=== PATIENT | female | born 1985 | race Caucasian/White ===

== ENCOUNTER 2024-04-24 02:00 | Inpatient (IN) ==
--- NOTE | 2024-04-24 03:29 | Emergency Department Note ---
Impression & Plan Lower gastrointestinal hemorrhage, Anemia, Dizziness, Lightheadedness ED Provider Note CHIEF COMPLAINT: Dizziness, fall, rectal bleeding HISTORY OF PRESENT ILLNESS: This 38-year-old female patient presents to the emergency department today for evaluation of dizziness. The patient states she was here yesterday for hemorrhoid and rectal bleeding. The patient states she was doing okay throughout the day today, eating a high-fiber diet but admits to not eating or drinking much throughout the day. She states that about 11 PM, she was walking her dog when she bent over to tend to the dog and developed sudden onset of dizziness. The patient states that she did fall, landing on her knees. She scraped up her left knee. The patient states she got up, but was having difficulty getting back to her home due to the ongoing dizziness. She states that she is feeling lightheaded. She is concerned that she may be losing too much blood due to the rectal bleeding. The patient states the dizziness occurs when she changes positions. While sitting upright, she feels generally okay, but if she leans forward or bends over or lies back, the dizziness returns. She has not taken any medication for the symptoms. No recent fever or illness. No chest pain or shortness of breath. No abdominal pain. No numbness, tingling, weakness. Patient states she did have similar symptoms associated with starting her menstrual cycle about a year ago. The patient was able to ambulate on the knee. She reports pain associated with the abrasion. No head injury. REVIEW OF SYSTEMS: A 10 system review of systems was performed with positives and pertinent negatives listed in the history of present illness. All other systems were reviewed and are negative. ALLERGIES: lactose PHYSICAL EXAM: VITALS: Vitals are noted on the nurse's note and reviewed by myself. GENERAL: This is a 38-year-old female, in no acute distress, nondiaphoretic, well-developed well-nourished. SKIN: Abrasion on the left knee. There is mild bleeding. There are no gaping wounds. No surrounding erythema or edema. There is tenderness to palpation the skin was without rashes, erythema, edema, or bruising. There is no tenting of the skin. Capillary refill less than 2 seconds. HEAD: Normocephalic atraumatic. EARS: External auditory canals clear, tympanic membranes pearly fonseca without erythema or effusion bilaterally. No hemotympanum. Negative Campbell sign EYES: Pupils equal round and reactive to light and accommodation. Conjunctivae without injection, sclerae without icterus. Extraocular movements intact. no swelling or discoloration of the tissue surrounding the eyes. NOSE: Patent, turbinates without inflammation or discharge. No sinus tenderness. MOUTH: Mucous membranes moist. Tonsils are not enlarged. Pharynx without erythema or exudate. Uvula midline. Airway patent. Tongue does not deviate. NECK: Supple without nuchal rigidity. No lymphadenopathy. Cervical spine is nontender. No JVD. HEART: Regular rate and rhythm without murmurs gallops or rubs. LUNGS: Clear to auscultation bilaterally without wheezes, rales or rhonchi. No retractions or accessory muscle use. ABDOMEN: Positive bowel sounds x 4. Normal tympanic percussion. Soft, nontender, without masses or organomegaly. Crowder sign negative. No guarding or rebound tenderness. No CVA tenderness bilaterally RECTAL - No rectal fissures. Flesh-colored external hemorrhoid appreciated at the 6 o'clock position. A sterile, water-soluble lubricant was applied to the examiner's finger prior to internal exam. No rectal vault tenderness. No rectal masses. No fecal impaction. Stool is brown in color and grossly bloody. PSYCH - A&Ox3 and cooperates fully with examiner. Pt is very pleasant and interacts well with examiner. MUSCULOSKELETAL: No muscle atrophy, erythema, or edema noted. Full range of motion without joint tenderness in all extremities. No tenderness to palpation. Normal gait. Strength 5/5 throughout. NEURO: Patient was alert and oriented to person place and time. Normal sensation to light and sharp touch. No focal neurological deficits. 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 The monitor showed a normal sinus rhythm at a ventricular rate of 87 bpm, per my interpretation. EKG, per my interpretation: Sinus rhythm with PACs. No ST elevation or depression. No T wave inversion. No prior EKG available for comparison. EMERGENCY DEPARTMENT COURSE: The patient was seen and evaluated as above. The patient presents for episode of dizziness and lightheadedness. She has been experiencing rectal bleeding for several days. She was seen here in the emergency department yesterday and was diagnosed with a hemorrhoid. IV access was obtained, labs were drawn. EKG as above. Patient was medicated with IV fluids. Labs reviewed. Labs were concerning for Leukocytosis of 17,000. There is an anemia with a hemoglobin of 7.8. This is down from hemoglobin of 10.2 drawn about 36 hours ago here in the emergency department. There was no thrombocytopenia. Renal, hepatic function and electrolytes without significant abnormality. Troponin is high normal at 12.4. Of note, this is up from troponin of 7.4 which was completed about 36 hours ago. hCG negative. Urinalysis negative for blood or evidence of infection. Patient was updated on findings. She is feeling somewhat better but is complaining of a headache. She states the dizziness and lightheadedness has significantly improved. I did recommend a repeat rectal examination and the patient was agreeable. The stool was light brown and visibly bloody. I did recommend CT imaging to further evaluate the rectal bleeding and the patient's complaint of dizziness. The patient was agreeable. CT scan was completed and was reviewed by myself and radiologist as noted. No acute findings. The patient has been afebrile. There is a leukocytosis of 17,000 and I question a developing infection. There is no tenderness to palpation and she denies vomiting or diarrhea at this time. I am concerned regarding the drop in hemoglobin over about 36 hours. I recommended inpatient treatment for observation, monitoring of hemoglobin, and administration of blood if necessary. The patient was agreeable. I discussed case with the campground manager. I discussed the case with Dr. Mclaughlin, [facility] hospitalist physician. Please see hospitalist dictation regarding ongoing management care of this patient. Case was discussed with the attending physician. I attest that I have personally reviewed the patient medication list. I attest that I have reviewed the patient's blood pressure and it was found to be elevated. Further management by hospitalist GCS: 15 In the evaluation and treatment of this patient the following differential diagnoses were entertained: GI bleed, infection, bowel perforation, benign positional vertigo, dehydration, hypovolemia, anemia, tumor, infection, hypoglycemia, electrolyte abnormalities, cardiac sources, intracerebral event, toxicologic, neurologic, as well as other pathologies. The chart was completed utilizing [employer] voice recognition software. Grammatical errors, random word insertions, pronoun errors, and incomplete sentences are an occasional consequence of this system due to software limitations, ambient noise, and hardware issues. Any formal questions or concerns about the content, text, or information contained within the body of this dictation should be directly addressed to the provider for clarification. Past Med/Surg History Problem List (Updated 04/24/24 @ 06:05 by Jeane Zaragoza PA-C) Lightheadedness (Acute) Dizziness (Acute) Anemia (Acute) Lower gastrointestinal hemorrhage (Acute) Medical History Hemorrhoids Social History Smoking Status: Never smoker Preferred Language: Upper Sorbian Feels Safe at Home: Yes Allergies Allergies Allergy/AdvReac Type Severity Reaction Status Date / Time lactose Allergy Intermediate Gastrointestinal Verified 10/07/23 02:02 Upset Home Meds Home Medications Medication Instructions Recorded Confirmed multivitamin 1 tab PO DAILY 10/07/23 04/22/24 Results & Data (ED) Vital Signs Vital Signs - 24 hr 04/24/24 02:36 04/24/24 03:13 04/24/24 03:15 Pulse Rate 87 85 Pulse Rate from SpO2 Sensor 85 Respiratory Rate 16 Blood Pressure Blood Pressure Mean Pulse Oximetry 96 Oxygen Delivery Method Room Air Room Air Oxygen Flow Rate 98 04/24/24 03:30 04/24/24 04:30 Pulse Rate 88 Pulse Rate from SpO2 Sensor 89 84 Respiratory Rate 19 18 Blood Pressure 140/90 145/93 H Blood Pressure Mean 106 110 Pulse Oximetry 96 98 Oxygen Delivery Method Room Air Room Air Oxygen Flow Rate Laboratory Data 04/24/24 02:25 04/24/24 02:25 Lab Results 04/24/24 04/24/24 Range/Units 02:25 04:06 WBC 17.15 H (4.8-10.8) K/ul RBC 3.14 L (4.20-5.40) M/uL Hgb 7.8 L (12.0-16.0) g/dl Hct 24.8 L (37.0-47.0) % MCV 79.0 L (80.0-100.0) fL MCH 24.8 L (25.0-34.0) pg MCHC 31.5 L (32.0-36.0) g/dL RDW Std Deviation 58.4 H (36.4-46.3) fL RDW Coeff of Paty 20.5 H (11.5-14.5) % Plt Count 475 H (130-400) K/uL MPV 9.1 L (9.4-12.4) fL PT 10.3 (9.0-12.0) Seconds INR 0.9 (0.9-1.1) APTT 22 (21-31) Seconds PTT Ratio 0.8 Sodium 136 (136-145) mmol/L Potassium 3.7 (3.5-5.1) mmol/L Chloride 104 (98-107) mmol/L Carbon Dioxide 24 (21-32) mmol/L Anion Gap 8 (3-11) BUN 17 (6-23) mg/dl Creatinine 0.75 (0.6-1.2) mg/dl Est Cr Clr Drug Dosing Not Reportable Est GFR ( Amer) 115.6 ml/min Est GFR (Non-Af Amer) 99.7 ml/min BUN/Creatinine Ratio 22.7 H (10-20) Glucose 129 H (70-99(Fasting)) mg/dl Calcium 9.3 (8.6-10.3) mg/dl Total Bilirubin 0.2 (0.2-1.0) mg/dl AST 19 (13-39) U/L ALT 16 (7-52) U/L Alkaline Phosphatase 73 (34-104) U/L Troponin I High Sens 12.4 D (0-14) pg/ml Total Protein 6.9 (6.0-8.3) gm/dl Albumin 4.0 (3.4-5.0) gm/dl Globulin 2.9 (2.5-4.0) gm/dl Albumin/Globulin Ratio 1.4 (0.9-2) HCG, Qual Negative (Negative) Urine Color Yellow Urine Appearance Clear (Clear) Urine pH 6.0 (4.5-7.5) Ur Specific Foster 1.007 (1.000-1.030) Urine Protein Negative (Negative) Urine Glucose (UA) Negative (Negative) Urine Ketones Negative (Negative) Urine Blood Negative (Negative) Urine Nitrite Negative (Negative) Urine Bilirubin Negative (Negative) Urine Urobilinogen Negative (Negative) Ur Leukocyte Esterase Negative (Negative) Blood Type B Negative Antibody Screen NEGATIVE Administered Medications Discontinued Medications Ioversol (Optiray 320 125ml) 125 ml IV ONCE ONE Stop: 04/24/24 04:13 Last Admin: 04/24/24 04:13 Dose: 117 ml Documented By: [facility] Imaging Data Radiologist's Impression: Abdomen/Pelvis CT 04/24/24 03:51 CT SCAN OF THE ABDOMEN AND PELVIS WITH IV CONTRAST CLINICAL HISTORY: Hematochezia. Drop in hemoglobin. Fall. COMPARISON STUDY: No priors. TECHNIQUE: Following the IV administration of 117 cc of Optiray 320, CT scan of the abdomen and pelvis is performed from the lung bases to the proximal femora. Images are reviewed in the axial, sagittal, and coronal planes. IV contrast was administered without complication. A dose lowering technique was utilized adhering to the principles of ALARA. CT DOSE: 1521.46 mGy.cm FINDINGS: Lung bases: The heart is normal in size and without pericardial effusion. The lung bases are clear. Liver: The contrast-enhanced liver is enlarged, measuring 21.8 cm in length. The liver demonstrates diffusely diminished attenuation indicating steatosis. Fatty sparing is seen adjacent to gallbladder fossa. There is a calcified hepatic granuloma. There is no intrahepatic biliary ductal dilatation. The hepatic veins and portal veins are patent. Gallbladder: Unremarkable. Spleen: Normal in size and attenuation. Pancreas: Unremarkable. Adrenal glands: Unremarkable. Kidneys: The contrast enhanced kidneys are normal in size and without hydronephrosis. The kidneys enhance symmetrically. Abdominal vasculature: The abdominal aorta is normal in course and caliber. Bowel: There is [id number] colonic diverticulosis without CT evidence of acute diverticulitis. No bowel obstruction is seen. The appendix is well- visualized and normal. Peritoneum: There is no intraperitoneal free air or abdominal ascites. There is a fat-containing umbilical hernia. Lymphadenopathy: None. Pelvic viscera: The bladder, uterus, and adnexa are normal as visualized. Skeletal structures: No lytic or blastic lesions are seen. IMPRESSION: 1. No acute infectious or inflammatory findings are identified in the abdomen or pelvis. 2. Hepatomegaly and hepatic steatosis. 3. Colonic diverticulosis without CT evidence of acute diverticulitis. 4. Additional findings as above. ACT 112: Negative or not required by law. Electronically signed by: Tim Cast M.D. 04/24/2024 5:20 AM Discharge Plan Visit Data Chief Complaint: Dizziness Stated Complaint: HYPOGLYCEMIA? ED Provider: Aida Malcolm ED Midlevel Provider: Matter,Jeane D. Discharge Problem: Lower gastrointestinal hemorrhage, Anemia, Dizziness, Lightheadedness Patient Disposition: Admitted As Inpatient Forms Stand Alone Forms: [facility] [employer] Prescriptions Prescriptions: No Action multivitamin Tablet 1 tab PO DAILY Referrals Referrals: PCP,NO [Primary Care Provider] -
[2024-04-24 03:30] LABS: Appearance Urine Clear (Clear); Bilirubin Urine Negative (Negative); Blood Urine Negative (Negative); Color Urine Yellow; Glucose Urine UA Negative (Negative); Ketones Urine Negative (Negative); Leukocyte Esterase Urine Negative (Negative); Nitrite Urine Negative (Negative); Protein Urine Negative (Negative); Specific Gravity Urine 1.007 (1.000-1.030); Urobilinogen Urine Negative (Negative)
[2024-04-24 03:41] LABS: Alanine Aminotransferase 16 U/L (7-52); Albumin Globulin Ratio 1.4 (0.9-2); Alkaline Phosphatase 73 U/L (34-104); Anion Gap 8 (3-11); Aspartate Aminotransferase 19 U/L (13-39); BUN Creatinine Ratio 22.7 (10-20); Bilirubin,Total 0.2 mg/dl (0.2-1.0); Blood Urea Nitrogen 17 mg/dl (6-23); Calcium 9.3 mg/dl (8.6-10.3); Carbon Dioxide 24 mmol/L (21-32); Chloride 104 mmol/L (98-107); Est GFR (African American) 115.6 ml/min; Est GFR (Non-African American) 99.7 ml/min; Globulin 2.9 gm/dl (2.5-4.0); Glucose 129 mg/dl (70-99(Fasting)); Potassium 3.7 mmol/L (3.5-5.1); Sodium 136 mmol/L (136-145); Total Protein 6.9 gm/dl (6.0-8.3)
[2024-04-24 03:46] LABS: Hematocrit (blood only) 24.8 % (37.0-47.0); Hemoglobin 7.8 g/dl (12.0-16.0); Mean Corpuscular Hemoglobin 24.8 pg (25.0-34.0); Mean Corpuscular Hgb Conc 31.5 g/dL (32.0-36.0); Mean Platelet Volume 9.1 fL (9.4-12.4); Platelet Count 475 K/uL (130-400); RDW Coefficient of Variation 20.5 % (11.5-14.5); RDW Standard Deviation 58.4 fL (36.4-46.3); Red Blood Count 3.14 M/uL (4.20-5.40); White Blood Count 17.15 K/ul (4.8-10.8)
[2024-04-24 03:47] LABS: Troponin I High Sensitivity 12.4 pg/ml (0-14)
[2024-04-24 03:54] LABS: Pregnancy Test, Serum Negative (Negative)
[2024-04-24] MEDS: OPTIRAY 320 125ml IV ONE (04:13)
--- NOTE | 2024-04-24 05:23 | CT Scan Report ---
CT SCAN OF THE ABDOMEN AND PELVIS WITH IV CONTRAST CLINICAL HISTORY: Hematochezia. Drop in hemoglobin. Fall. COMPARISON STUDY: No priors. TECHNIQUE: Following the IV administration of 117 cc of Optiray 320, CT scan of the abdomen and pelv is is performed from the lung bases to the proximal femora. Images are reviewed in the axial, sagitta l, and coronal planes. IV contrast was administered without complication. A dose lowering technique w as utilized adhering to the principles of ALARA. CT DOSE: 1521.46 mGy.cm FINDINGS: Lung bases: The heart is normal in size and without pericardial effusion. The lung bases are clear. Liver: The contrast-enhanced liver is enlarged, measuring 21.8 cm in length. The liver demonstrates d iffusely diminished attenuation indicating steatosis. Fatty sparing is seen adjacent to gallbladder f irma. There is a calcified hepatic granuloma. There is no intrahepatic biliary ductal dilatation. The hepatic veins and portal veins are patent. Gallbladder: Unremarkable. Spleen: Normal in size and attenuation. Pancreas: Unremarkable. Adrenal glands: Unremarkable. Kidneys: The contrast enhanced kidneys are normal in size and without hydronephrosis. The kidneys enh ance symmetrically. Abdominal vasculature: The abdominal aorta is normal in course and caliber. Bowel: There is [id number] colonic diverticulosis without CT evidence of acute diverticulitis. No bowel obstruction is seen. The appendix is well-visualized and normal. Peritoneum: There is no intraperitoneal free air or abdominal ascites. There is a fat-containing umbi lical hernia. Lymphadenopathy: None. Pelvic viscera: The bladder, uterus, and adnexa are normal as visualized. Skeletal structures: No lytic or blastic lesions are seen. IMPRESSION: 1. No acute infectious or inflammatory findings are identified in the abdomen or pelvis. 2. Hepatomegaly and hepatic steatosis. 3. Colonic diverticulosis without CT evidence of acute diverticulitis. 4. Additional findings as above. ACT 112: Negative or not required by law. Electronically signed by: Tim Cast M.D. 04/24/2024 5:20 AM
[2024-04-24 05:59] LABS: INR 0.9 (0.9-1.1); Partial Thromboplastin Ratio 0.8; Partial Thromboplastin Time 22 Seconds (21-31); Prothrombin Time 10.3 Seconds (9.0-12.0)
[2024-04-24 06:12] LABS: Magnesium 2.1 mg/dl (1.7-2.4)
[2024-04-24] MEDS: ACETAMINOPHEN 1,000 MG/100 ML VIAL IV STA (06:13)
[2024-04-24] MEDS: metroNIDAZOLE 500 MG/100 ML BAG IV STA (06:23)
[2024-04-24] MEDS: LACTATED RINGER'S 1,000 ML IV STA (06:24)
--- NOTE | 2024-04-24 06:47 | History & Physical Report ---
Date of Service April 24, 2024 Assessment & Plan (1) Symptomatic anemia: Plan: Acute on chronic anemia Hemoglobin drop from baseline from last year Secondary to LGIB Rule out infectious etiology given leukocytosis hypertension as per patient, likely chronic BP elevation given LVH on previous EKG Hepatic steatosis on imaging likely NAFLD Hyperglycemia rule out DM Medical telemetry Transfuse 1 unit PRBC given symptomatic anemia and significant hemoglobin drop from baseline Stool CS, stool C. difficile Flagyl 1 dose now for possible C. difficile given leukocytosis Oral vancomycin course if C. difficile positive GI consult if hematochezia continues and stool workup negative Lisinopril for BP control Outpatient GI evaluation for NAFLD Check hemoglobin A1c DVT prophylaxis. SCDs Re: GI bleed Full code Text document was generated using [employer] voice recognition software. It may contain grammatical or spelling errors. Kindly contact undersigned for clarification of any documentation item in question. History of Present Illness Chief Complaint: Bloody diarrhea Primary Care Provider: NO PCP History obtained from patient and records. Medical history significant for possible hypertension as per patient, hemorrhoids. Patient seen at the ER last September 2023 for transient rectal bleed attributed to hemorrhoids. Hemoglobin noted to be 11 at time of visit. Outpatient GI evaluation recommended. 3 days ago, patient noted rectal bleed without abdominal pain. No nausea, no emesis. No chest pain, no SOB. Transient lightheadedness. Usual OTC NSAID intake. Episode attributed to red meat/greasy food intake. Patient consulted ER 2 days ago. Hemoglobin noted to be 10.8. Patient discharged home because she felt better. Yesterday, patient had recurrence of bloody bowel movements now noted to be loose. No abdominal pain. No recent antibiotic Rx/known sick contacts/new restaurant food/out-of-town travel. No hematemesis. Near syncope with lightheadedness. Patient fell on her left knee sustaining a bruise. No head trauma. Patient returned to ER for evaluation. Achy headache symptoms noted at the ER. Highest SBP noted to be 160s. 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 Allergies Allergy/AdvReac Type Severity Reaction Status Date / Time lactose Allergy Intermediate Gastrointestinal Verified 04/24/24 08:15 Upset Milk Containing Products Allergy Intermediate Gastrointestinal Unverified 04/24/24 08:15 (Dairy) Upset pollen extracts Allergy Intermediate Sneezing Unverified 04/24/24 08:15 Home Medications Medication Instructions Recorded Confirmed Type multivitamin 1 tab PO DAILY 10/07/23 04/24/24 History htxkjls-hozpatxajkhnt-ugekmxpt 250 1 tab PO Q6H PRN Migraine Headache 04/24/24 04/24/24 History mg-250 mg-65 mg tablet (Excedrin Migraine) cholecalciferol (vitamin D3) 50 50 mcg PO DAILY 04/24/24 04/24/24 History mcg (2,000 unit) tablet (Vitamin D3) ibuprofen 200 mg tablet 200 mg PO Q6H PRN Pain 04/24/24 04/24/24 History Past Med/Surg History Problem List (Updated 04/24/24 @ 09:40 by Zen Mlcaughlin MD) Symptomatic anemia Lightheadedness (Acute) Dizziness (Acute) Anemia (Acute) Lower gastrointestinal hemorrhage (Acute) Medical History Hemorrhoids Social History Smoking Status: Never smoker Preferred Language: Spanish Feels Safe at Home: Yes Review of Systems Review of Systems: As per HPI, all other systems reviewed and negative Physical Exam Physical Exam: GENERAL: Comfortable, morbidly obese, pleasant, looks older than stated age, no respiratory distress SKIN: Pallor, warm HEENT: Pale palpebral conjunctivae, no ptosis, dry buccal mucosa NECK : Supple, short neck, no tenderness CHEST : CTA, no tenderness HEART : RRR, no obvious murmurs ABDOMEN: Some distention, nontender EXTREMITIES : Minimal LE swelling, no LE tenderness, no other conspicuous deformities noted NEUROLOGIC : Coherent, no facial asymmetry, no other gross focality Results & Data Results & Data Vital Signs (Past 12 Hours) Vital Signs Pulse Resp BP Pulse Ox O2 Del Method O2 Flow Rate 04/24/24 06:39 88 16 159/93 H 99 Room Air 04/24/24 06:27 82 04/24/24 06:01 84 19 157/88 H 100 Room Air 04/24/24 05:31 80 18 169/83 H 100 Room Air 04/24/24 05:01 83 20 121/86 100 Room Air 04/24/24 04:30 18 145/93 H 98 Room Air 04/24/24 03:30 88 19 140/90 96 Room Air 04/24/24 03:15 Room Air 98 04/24/24 03:13 85 16 96 Room Air 04/24/24 02:36 87 Laboratory Results Laboratory Results WBC 17.15 K/ul (4.8-10.8) H 04/24/24 02:25 RBC 3.14 M/uL (4.20-5.40) L 04/24/24 02:25 Hgb 7.8 g/dl (12.0-16.0) L 04/24/24 02:25 Hct 24.8 % (37.0-47.0) L 04/24/24 02:25 MCV 79.0 fL (80.0-100.0) L 04/24/24 02:25 MCH 24.8 pg (25.0-34.0) L 04/24/24 02:25 MCHC 31.5 g/dL (32.0-36.0) L 04/24/24 02:25 RDW Std Deviation 58.4 fL (36.4-46.3) H 04/24/24 02:25 RDW Coeff of Paty 20.5 % (11.5-14.5) H 04/24/24 02:25 Plt Count 475 K/uL (130-400) H 04/24/24 02:25 MPV 9.1 fL (9.4-12.4) L 04/24/24 02:25 PT 10.3 Seconds (9.0-12.0) 04/24/24 02:25 INR 0.9 (0.9-1.1) 04/24/24 02:25 APTT 22 Seconds (21-31) 04/24/24 02:25 PTT Ratio 0.8 04/24/24 02:25 Sodium 136 mmol/L (136-145) 04/24/24 02:25 Potassium 3.7 mmol/L (3.5-5.1) 04/24/24 02:25 Chloride 104 mmol/L (98-107) 04/24/24 02:25 Carbon Dioxide 24 mmol/L (21-32) 04/24/24 02:25 Anion Gap 8 (3-11) 04/24/24 02:25 BUN 17 mg/dl (6-23) 04/24/24 02:25 Creatinine 0.75 mg/dl (0.6-1.2) 04/24/24 02:25 Est Cr Clr Drug Dosing Not Reportable 04/24/24 02:25 Est GFR ( Amer) 115.6 ml/min 04/24/24 02:25 Est GFR (Non-Af Amer) 99.7 ml/min 04/24/24 02:25 BUN/Creatinine Ratio 22.7 (10-20) H 04/24/24 02:25 Glucose 129 mg/dl (70-99(Fasting)) H 04/24/24 02:25 Calcium 9.3 mg/dl (8.6-10.3) 04/24/24 02:25 Magnesium 2.1 mg/dl (1.7-2.4) 04/24/24 02:25 Total Bilirubin 0.2 mg/dl (0.2-1.0) 04/24/24 02:25 AST 19 U/L (13-39) 04/24/24 02:25 ALT 16 U/L (7-52) 04/24/24 02:25 Alkaline Phosphatase 73 U/L (34-104) 04/24/24 02:25 Troponin I High Sens 12.4 pg/ml (0-14) D 04/24/24 02:25 Total Protein 6.9 gm/dl (6.0-8.3) 04/24/24 02:25 Albumin 4.0 gm/dl (3.4-5.0) 04/24/24 02:25 Globulin 2.9 gm/dl (2.5-4.0) 04/24/24 02:25 Albumin/Globulin Ratio 1.4 (0.9-2) 04/24/24 02:25 HCG, Qual Negative (Negative) 04/24/24 02:25 Urine Color Yellow 04/24/24 02:25 Urine Appearance Clear (Clear) 04/24/24 02:25 Urine pH 6.0 (4.5-7.5) 04/24/24 02:25 Ur Specific [place] 1.007 (1.000-1.030) 04/24/24 02:25 Urine Protein Negative (Negative) 04/24/24 02:25 Urine Glucose (UA) Negative (Negative) 04/24/24 02:25 Urine Ketones Negative (Negative) 04/24/24 02:25 Urine Blood Negative (Negative) 04/24/24 02:25 Urine Nitrite Negative (Negative) 04/24/24 02:25 Urine Bilirubin Negative (Negative) 04/24/24 02:25 Urine Urobilinogen Negative (Negative) 04/24/24 02:25 Ur Leukocyte Esterase Negative (Negative) 04/24/24 02:25 Blood Type B Negative 04/24/24 04:06 Antibody Screen NEGATIVE 04/24/24 04:06 Impressions Abdomen/Pelvis CT 04/24/24 03:51 CT SCAN OF THE ABDOMEN AND PELVIS WITH IV CONTRAST CLINICAL HISTORY: Hematochezia. Drop in hemoglobin. Fall. COMPARISON STUDY: No priors. TECHNIQUE: Following the IV administration of 117 cc of Optiray 320, CT scan of the abdomen and pelvis is performed from the lung bases to the proximal femora. Images are reviewed in the axial, sagittal, and coronal planes. IV contrast was administered without complication. A dose lowering technique was utilized adhering to the principles of ALARA. CT DOSE: 1521.46 mGy.cm FINDINGS: Lung bases: The heart is normal in size and without pericardial effusion. The lung bases are clear. Liver: The contrast-enhanced liver is enlarged, measuring 21.8 cm in length. The liver demonstrates diffusely diminished attenuation indicating steatosis. Fatty sparing is seen adjacent to gallbladder fossa. There is a calcified hepatic granuloma. There is no intrahepatic biliary ductal dilatation. The hepatic veins and portal veins are patent. Gallbladder: Unremarkable. Spleen: Normal in size and attenuation. Pancreas: Unremarkable. Adrenal glands: Unremarkable. Kidneys: The contrast enhanced kidneys are normal in size and without hydronephrosis. The kidneys enhance symmetrically. Abdominal vasculature: The abdominal aorta is normal in course and caliber. Bowel: There is [id number]-[id number] colonic diverticulosis without CT evidence of acute diverticulitis. No bowel obstruction is seen. The appendix is well- visualized and normal. Peritoneum: There is no intraperitoneal free air or abdominal ascites. There is a fat-containing umbilical hernia. Lymphadenopathy: None. Pelvic viscera: The bladder, uterus, and adnexa are normal as visualized. Skeletal structures: No lytic or blastic lesions are seen. IMPRESSION: 1. No acute infectious or inflammatory findings are identified in the abdomen or pelvis. 2. Hepatomegaly and hepatic steatosis. 3. Colonic diverticulosis without CT evidence of acute diverticulitis. 4. Additional findings as above. ACT 112: Negative or not required by law. Electronically signed by: Tim Cast M.D. 04/24/2024 5:20 AM Diagnostic Findings EKG as per my interpretation :Rate 90, NSR, LAD, LAFB, T wave flattening inferior leads
[2024-04-24] MEDS ORDERED: oxyCODONE HCL IR 5 MG TAB (IMMEDIATE RELEASE) PO PRN (07:09)
[2024-04-24] MEDS ORDERED: LORazepam 0.5 MG TAB PO PRN (07:09)
[2024-04-24] MEDS ORDERED: PROMETHAZINE HCL 12.5 MG in SODIUM CHLORIDE 0.9% 50 ML IV PRN (07:09)
[2024-04-24] MEDS ORDERED: SODIUM CHLORIDE 0.9% 250 ML IV PRN ×2 (07:09→23:38)
[2024-04-24 08:21] LABS: Estimated Average Glucose 123 mg/dl; Hemoglobin A1C 5.9 % (4.5-5.6)
[2024-04-24] MEDS: lisinopril 2.5 MG TAB PO SCH (09:27)
[2024-04-24] MEDS: MULTIVITAMIN TAB PO SCH (11:03)
--- NOTE | 2024-04-24 12:21 | Electrocardiogram Report ---
Test Reason : Blood Pressure : / mmHG Vent. Rate : 090 BPM Atrial Rate : 090 BPM P-R Int : 148 ms QRS Dur : 076 ms QT Int : 344 ms P-R-T Axes : 039 -06 028 degrees QTc Int : 420 ms Poor data quality, interpretation may be adversely affected Sinus rhythm Normal ECG When compared with ECG of 22-APR-2024 15:45, No significant change Confirmed by Skip Chavez ([id number]) on 04/24/2024 12:20:56 PM Referred By: REFERRED SELF Confirmed By:Skip Chavez
[2024-04-24 13:10] LABS: Adenovirus F 40/41 PCR Not Detected (NotDetected); Astrovirus PCR Not Detected (NotDetected); Campylobacter PCR Not Detected (NotDetected); Cryptosporidium PCR Not Detected (NotDetected); Cyclospora cayetanensis PCR Not Detected (NotDetected); Entamoeba histolytica PCR Not Detected (NotDetected); Enteroaggregative E.coli(EAEC) Not Detected (NotDetected); Enteropathogenic E.coli (EPEC) Not Detected (NotDetected); Enterotoxigenic E.coli (ETEC) Not Detected (NotDetected); Giardia lamblia PCR Not Detected (NotDetected); Norovirus GI/GII PCR Not Detected (NotDetected); Plesiomonas shigelloides PCR Not Detected (NotDetected); Rotavirus A PCR Not Detected (NotDetected); Salmonella PCR Not Detected (NotDetected); Sapovirus PCR Not Detected (NotDetected); Shiga-like Toxin E.coli (STEC) Not Detected (NotDetected); Shigella/Enteroinvasive E.coli Not Detected (NotDetected); Vibrio cholerae PCR Not Detected (NotDetected); Vibrio species PCR Not Detected (NotDetected); Yersinia enterocolitica PCR Not Detected (NotDetected)
[2024-04-24] MEDS: ACETAMINOPHEN 500 MG TAB PO PRN (13:44)
[2024-04-24 14:54] LABS: Hematocrit (blood only) 26.1 % (37.0-47.0); Hemoglobin 8.3 g/dl (12.0-16.0)
--- NOTE | 2024-04-24 14:55 | Communication Note ---
Date of Service: April 24, 2024 Pt seen in followup. States she feels better after the blood transfusion. Just tired. On exam, AAOx3, no acute distress. Breath sounds clear, RRR Hgb up to 8.3 after transfusion Continue with AM labs for further monitoring, AM anemia panel. For complete documentation, please see the History and Physical from the same date of service.
[2024-04-24 21:21] LABS: Hemoglobin 7.9 g/dl (12.0-16.0)
[2024-04-25 06:47] LABS: Hematocrit (blood only) 27.9 % (37.0-47.0); Hemoglobin 8.8 g/dl (12.0-16.0); Mean Corpuscular Hemoglobin 25.4 pg (25.0-34.0); Mean Corpuscular Hgb Conc 31.5 g/dL (32.0-36.0); Mean Corpuscular Volume 80.4 fL (80.0-100.0); Mean Platelet Volume 8.7 fL (9.4-12.4); Nucleated RBC # (auto) 0.02 K/uL (0.00-0.12); Nucleated RBC % (auto) 0.2 %; Platelet Count 399 K/uL (130-400); RDW Coefficient of Variation 20.4 % (11.5-14.5); RDW Standard Deviation 59.7 fL (36.4-46.3); Red Blood Count 3.47 M/uL (4.20-5.40); White Blood Count 8.83 K/ul (4.8-10.8)
[2024-04-25 07:15] LABS: BUN Creatinine Ratio 11.3 (10-20); Calcium 8.7 mg/dl (8.6-10.3); Creatinine Clr Calc Pharmacy 200.9 ml/min; Est GFR (African American) 130.7 ml/min; Est GFR (Non-African American) 112.8 ml/min; Magnesium 2.3 mg/dl (1.7-2.4); Phosphorus 3.7 mg/dl (2.5-4.9); Potassium 3.6 mmol/L (3.5-5.1)
[2024-04-25 07:34] LABS: Ferritin 4.5 ng/ml (8-388)
[2024-04-25] MEDS ORDERED: lisinopril 2.5 MG TAB PO SCH (09:00)
[2024-04-25 11:29] VITALS: TEMP 98.6
[2024-04-25 13:51] LABS: Folate (Folic Acid),Ser orPlas > 22.30 ng/ml (>5.38)
[2024-04-25 13:52] LABS: Vitamin B12 352 pg/ml (180-914)
[2024-04-25 15:20] VITALS: BP 166/114; RESP 18; O2SAT 95
--- NOTE | 2024-04-25 15:21 | Hospitalist Progress Note ---
Date of Service April 25, 2024 Assessment & Plan (1) Symptomatic anemia: Plan: Acute on chronic anemia Hemoglobin drop from baseline from last year Secondary to LGIB Rule out infectious etiology given leukocytosis hypertension as per patient, likely chronic BP elevation given LVH on previous EKG Hepatic steatosis on imaging likely NAFLD Hyperglycemia rule out DM Medical telemetry Transfuse 1 unit PRBC given symptomatic anemia and significant hemoglobin drop from baseline Stool CS, stool C. difficile Flagyl 1 dose now for possible C. difficile given leukocytosis Oral vancomycin course if C. difficile positive GI consult if hematochezia continues and stool workup negative Lisinopril for BP control Outpatient GI evaluation for NAFLD Check hemoglobin A1c DVT prophylaxis. SCDs Re: GI bleed Full code Text document was generated using [employer] voice recognition software. It may contain grammatical or spelling errors. Kindly contact undersigned for clarification of any documentation item in question. Admission and Anticipated Discharge Date Admission Date: April 24, 2024 Results & Data Results & Data Vital Signs (Past 12 Hours) Vital Signs Temp Pulse Pulse Resp BP BP Pulse Ox 04/25/24 15:19 37.0 C 79 18 166/114 H 95 04/25/24 11:28 37.0 C 80 20 148/91 H 97 04/25/24 10:25 72 04/25/24 07:41 37.1 C 89 18 152/89 H 99 04/25/24 03:49 37 C 83 18 139/85 98 04/25/24 03:35 37.0 C 83 18 139/85 98 O2 Del Method 04/25/24 15:19 Room Air 04/25/24 11:28 Room Air 04/25/24 10:25 04/25/24 07:41 Room Air 04/25/24 03:49 Room Air 04/25/24 03:35
--- NOTE | 2024-04-25 15:49 | Gastrointestinal Consultation ---
Date of Consultation April 25, 2024 Assessment & Plan (1) Anemia: (2) Lower gastrointestinal hemorrhage: Plan H/H 8.8. Differential includes hemorrhoidal bleeding vs diverticular bleeding vs other. Due to the fact her bleeding has stopped at present, we discussed options of how to proceed with a colonoscopy. She would like to proceed with outpatient colonoscopy on Sunday04/28/24. A bowel prep will be called into the [facility] in [place] and our office staff will reach out to arrange arrival & instructions. This plan of care was communicated to her hospitalist. Supervising Physician Co-Signing Physician Notes Agree withagree with Anabel WARNER as above Interviewed and examined patient and agree with above Abdomen: soft nontender, nondistended positive bowel sounds Proceeded with colonoscopy on Sunday as an out History of Present Illness Reason for Consultation: Lower GI bleeding, anemia Attending Physician: Tamara Stanford MD History of Present Illness Patient is a 38 yo female hospitalized for anemia and bright red blood per rectum. Her hemoglobin was in the 7s and she was transfused. H/H at present is 8.8/27.9. She notes she has not had further bright red blood per rectum today. She notes this has happened before and it was presumed she had hemorrhoids. She has never had a colonoscopy. A CT scan of the abdomen/pelvis showed diverticulosis. She had a negative stool PCR. She has no abdominal pain, nausea, or vomiting. She denies any diarrhea at present. No new concerns. No pertinent family history. Allergies Allergy/AdvReac Type Severity Reaction Status Date / Time lactose Allergy Intermediate Gastrointestinal Verified 04/25/24 15:05 Upset Milk Containing Products Allergy Intermediate Gastrointestinal Verified 04/25/24 15:05 (Dairy) Upset pollen extracts Allergy Intermediate Sneezing Verified 04/25/24 15:05 Beef Containing Products Allergy Gastrointestinal Verified 04/25/24 15:06 Upset Home Medications Medication Instructions Recorded Confirmed Type multivitamin 1 tab PO QPM 10/07/23 04/25/24 History cholecalciferol (vitamin D3) 50 50 mcg PO QPM 04/24/24 04/25/24 History mcg (2,000 unit) tablet (Vitamin D3) lisinopril 2.5 mg tablet 2.5 mg PO QAM #30 tabs 04/25/24 Rx peg 3350-electrolytes 236 240 ml PO ONCE #4,000 mL 04/25/24 Rx gram-22.74 gram-6.74 gram-5.86 gram solution (Golytely) Patient History Medical History Psoriasis Hx of migraines Snoring Symptomatic anemia hospitalized [facility] 04/22/24 with large amount of rectal bleeding, to be d/c 04/25/24 Hemorrhoids Surgical History [place] teeth extracted under local only Social History Smoking Status: Never smoker Second Hand Exposure: Yes (hx as child); Do You Dip or Chew Tobacco: No; Tobacco Cessation Education Requested by Patient: No Hx Alcohol Use: Yes Hx Substance Use: Yes Last Used Substance: Hours (ago) Last Used Substance Other:: recreationally-04/22/24 Preferred Language: Cook Islander Communication Ability: Effective 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 Beliefs That Will Affect Care: None Current Living Situation: Significant Other Current Living Situation Comment: Pt resides with ricki who has cerebral palsy Other Information That Helps Us Care for You: No Feels Safe at Home: Yes Safety Concerns: Feels Safe At This Time Assistive Devices: None Review of Systems Constitutional: no fever and no chills Respiratory: no cough and no dyspnea Cardiovascular: no chest pain Gastrointestinal: + blood in stools; no abdominal pain Physical Exam Constitutional: well developed Respiratory: normal respiratory effort Cardiovascular: Rate/Rhythm: regular rate Gastrointestinal (Abdomen): normal bowel sounds, soft, nontender, no hepatosplenomegaly Psychiatric: Orientation: alert and oriented x 3 Results & Data Vital Signs (Past 12 Hours) Vital Signs Temp Pulse Pulse Resp BP Pulse Ox O2 Del Method 04/25/24 15:19 37.0 C 79 18 166/114 H 95 Room Air 04/25/24 11:28 37.0 C 80 20 148/91 H 97 Room Air 04/25/24 10:25 72 04/25/24 07:41 37.1 C 89 18 152/89 H 99 Room Air 04/25/24 03:49 37 C 83 18 139/85 98 Room Air PG Care Time/CCT Total # of Minutes Spent Total Time Spent with Patient: Total time spent is greater than 50% in coordination of care (as documented) at patient's floor/unit and/or counseling patient: Coding Level of Care Code 03428 IN/OBS CONSULT LVL 4,60M Diagnoses Anemia D64.9 Lower gastrointestinal hemorrhage K92.2
--- NOTE | 2024-04-25 16:02 | Discharge Summary ---
Discharge Summary Date of Service April 25, 2024 Principal Dx & Hospital Course #1 = Principal Diagnosis (1) Symptomatic anemia: Plan Pt is a 38yoF with PMHx significant for possible hypertension as per patient and hemorrhoids presenting after a near syncopal episode in the setting of bloody bowel movements. Acute on chronic anemia Lower GI bleed Hemoglobin drop from baseline from last year 11.6 to 10.2 to 7.8 this admission Secondary to Lower GI Bleed Rule out infectious etiology given leukocytosis with stool cultures which were negative C diff remained uncollected CT abd/pelvis noting diverticulosis without diverticulitis, but no acute pathology She was transfused 1 unit PRBC given symptomatic anemia and significant hemoglobin drop from baseline Hgb improved to 8.3 and was 8.8 the next day GI was consulted, they recommended discharge home with colonoscopy on SundayApril 28. Please ensure GI followup Please continue to monitor H/H after discharge HTN BP persistently elevated Was started on lisinopril 2.5mg Titrate up as needed Prediabetes hgba1c of 5.9 Dietary and exercise changes Notes For Next Care Provider Medication Changes From Visit None. Gi sent in prep for colonoscopy Admission HPI Per Admitting Provider History obtained from patient and records. Medical history significant for possible hypertension as per patient, hemorrhoi ds. Patient seen at the ER last September 2023 for transient rectal bleed attributed to hemorrhoids. Hemoglobin noted to be 11 at time of visit. Outpatient GI evaluation recommended. 3 days ago, patient noted rectal bleed without abdominal pain. No nausea, no emesis. No chest pain, no SOB. Transient lightheadedness. Usual OTC NSAID intake. Episode attributed to red meat/greasy food intake. Patient consulted ER 2 days ago. Hemoglobin noted to be 10.8. Patient discharged home because she felt better. Yesterday, patient had recurrence of bloody bowel movements now noted to be loose. No abdominal pain. No recent antibiotic Rx/known sick contacts/new restaurant food/out-of-town travel. No hematemesis. Near syncope with lightheadedness. Patient fell on her left knee sustaining a bruise. No head trauma. Patient returned to ER for evaluation. Achy headache symptoms noted at the ER. Highest SBP noted to be 160s. 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 No acute distress Skin: No noted rashes or bruises Psych: Appropriate mood and affect Neuro: No gross deficits HEENT: NC/AT CV: RRR Resp: Breath sounds clear bilaterally, no increased effort of breathing. Abdomen: Soft, nontender, nondistended. Extremities: No edema in lower extremities bilaterally. Updated Medication List Medication Instructions Recorded Confirmed Type multivitamin 1 tab PO QPM 10/07/23 04/25/24 History feopnyl-yskkkbuykmgkn-gqelhjqa 250 1 tab PO Q6H PRN Migraine Headache 04/24/24 04/25/24 History mg-250 mg-65 mg tablet (Excedrin Migraine) cholecalciferol (vitamin D3) 50 50 mcg PO QPM 04/24/24 04/25/24 History mcg (2,000 unit) tablet (Vitamin D3) ibuprofen 200 mg tablet 200 mg PO Q6H PRN Pain 04/24/24 04/25/24 History lisinopril 2.5 mg tablet 2.5 mg PO QAM #30 tabs 04/25/24 Rx peg 3350-electrolytes 236 240 ml PO ONCE #4,000 mL 04/25/24 Rx gram-22.74 gram-6.74 gram-5.86 gram solution (Golytely) Hospital Stay Data Consultations 04/24/24 05:38 ED Decision to Admit Stat 04/25/24 13:23 Consult Gastroenterology Routine Diagnostic Imagining Performed 04/24/24 03:51 CT abd pelvis IV con only Stat Abdomen/Pelvis CT 04/24/24 03:51 CT SCAN OF THE ABDOMEN AND PELVIS WITH IV CONTRAST CLINICAL HISTORY: Hematochezia. Drop in hemoglobin. Fall. COMPARISON STUDY: No priors. TECHNIQUE: Following the IV administration of 117 cc of Optiray 320, CT scan of the abdomen and pelvis is performed from the lung bases to the proximal femora. Images are reviewed in the axial, sagittal, and coronal planes. IV contrast was administered without complication. A dose lowering technique was utilized adhering to the principles of ALARA. CT DOSE: 1521.46 mGy.cm FINDINGS: Lung bases: The heart is normal in size and without pericardial effusion. The lung bases are clear. Liver: The contrast-enhanced liver is enlarged, measuring 21.8 cm in length. The liver demonstrates diffusely diminished attenuation indicating steatosis. Fatty sparing is seen adjacent to gallbladder fossa. There is a calcified hepatic granuloma. There is no intrahepatic biliary ductal dilatation. The hepatic veins and portal veins are patent. Gallbladder: Unremarkable. Spleen: Normal in size and attenuation. Pancreas: Unremarkable. Adrenal glands: Unremarkable. Kidneys: The contrast enhanced kidneys are normal in size and without hydronephrosis. The kidneys enhance symmetrically. Abdominal vasculature: The abdominal aorta is normal in course and caliber. Bowel: There is ylmc-yz-lylloeri colonic diverticulosis without CT evidence of acute diverticulitis. No bowel obstruction is seen. The appendix is well- visualized and normal. Peritoneum: There is no intraperitoneal free air or abdominal ascites. There is a fat-containing umbilical hernia. Lymphadenopathy: None. Pelvic viscera: The bladder, uterus, and adnexa are normal as visualized. Skeletal structures: No lytic or blastic lesions are seen. IMPRESSION: 1. No acute infectious or inflammatory findings are identified in the abdomen or pelvis. 2. Hepatomegaly and hepatic steatosis. 3. Colonic diverticulosis without CT evidence of acute diverticulitis. 4. Additional findings as above. ACT 112: Negative or not required by law. Electronically signed by: Tim Cast M.D. 04/24/2024 5:20 AM Pending Results Patient Have Any Pending Studies at Discharge: No Discharge Instructions Given to Patient (Per Discharging Provider) Liane, You were seen by the radar systems engineer and they are recommending discharge (since it appears your bleeding has stopped) with plans to do a colonoscopy on Sunday. Please keep that appointment. Per Gastroenterology, the prep for the colonoscopy has been called to your pharmacy and their staff will be in touch with you to give you further instructions. Please do not take medications like ibuprofen and Excedrin until you are evaluated further by GI as these can sometimes cause bleeding. Your blood pressure was also high so we are discharging you home with the medication lisinopril to help with that as well. Please also keep close follow up with a primary care provider after discharge. Please do not hesitate to come back to the emergency room if your symptoms worsen or return. It was a pleasure taking care of you while you were here. Total Time Total Time Spent Total Time Spent (In Minutes): 75
[2024-04-25 17:17] VITALS: PULSE 81
--- NOTE | 2024-04-26 17:46 | Coding Query ---
ANEMIA To promote full compliance with coding requirements relating to patient care, physician participation is requested in all cases of driller multiple spindle uncertainty. Please assist us with the question(s) below: Coding Question(s): The record reflects the following clinical findings:admission for anemia with melena . Colonoscopy to be scheduled as an Outpatient. If these findings are indicative of anemia, please specify the known or suspected type by placing an "X" within the parenthesis (x). If other, please document type. Examples are: ( x) Acute blood loss anemia ( ) Acute Postoperative blood loss anemia ( ) Acute postoperative anemia due to dilutional fluids ( ) Chronic blood loss anemia ( ) Anemia of chronic disease ( ) Aplastic anemia ( ) Anemia due to renal disease ( ) Anemia in neoplastic disease ( ) Iron deficient anemia ( ) Anemia, unspecified or other ( ) Other: (please specify) Thank you Topher [facility]
== END 2024-04-25 18:17 | disposition home or self-care (01) | DRG 378 ==
LOC: ED 02:00 → EDINP 07:07 → 2W 11:59